=== PATIENT | female | born 1955 | race Caucasian/White ===

== ENCOUNTER 2018-04-03 21:05 | Emergency (ER) | payer BC, OTHER ==
[~2018-04-03] VITALS: Ht 170.2 cm; Wt 86.2 kg
[2018-04-03] MEDS ORDERED: PANTOPRAZOLE 40 MG 10ML VIAL IV STA (21:11)
[2018-04-03] MEDS ORDERED: DICYCLOMINE HCL 20 MG/2 ML VIAL IM ONE (21:15)
[2018-04-03 22:27] LABS: BASOPHILS % 0.5 % (0.0-1.0); EOSINOPHILS # (AUTO) 0.1 (0.0-0.4); EOSINOPHILS % 2.1 % (0.0-6.0); HEMATOCRIT 42.1 % (34.2-44.1); HEMOGLOBIN 13.5 g/dL (12.0-16.0); LYMPHOCYTES # (AUTO) 3.5 (1.0-3.2); LYMPHOCYTES % 53.4 % (18.0-39.1); MEAN CORPUSCULAR HEMOGLOBIN 28.6 pg (28-32); MEAN CORPUSCULAR HGB CONC 32.1 g/dL (31-35); MEAN CORPUSCULAR VOLUME 89.2 fL (81-99); MONOCYTES # (AUTO) 0.7 (0.2-0.8); MONOCYTES % 11.3 % (4.4-11.3); NEUTROPHILS # (AUTO) 2.1 (2.1-6.9); NEUTROPHILS % 32.5 % (38.7-80.0); PLATELET COUNT 246 x10e3/uL (140-360); RED BLOOD COUNT 4.72 x10e6/uL (3.6-5.1); RED CELL DISTRIBUTION WIDTH 13.2 % (11.7-14.4)
--- NOTE | 2018-04-03 22:38 | Diagnostic Imaging Report ---
EXAM: US GALLBLADDER INDICATION: Right upper quadrant pain COMPARISON: None TECHNIQUE: Transverse and longitudinal sonographic images of the right upper abdomen were obtained. FINDINGS: LIVER: 13.5 cm in the right midclavicular line. Normal echogenicity, normal contour, no masses. Main Portal Vein: Normal size with hepatopetal flow. GALLBLADDER: No stones, sludge, wall-thickening or pericholecystic fluid. Negative sonographic Barfield's sign. BILE DUCTS: No intra nor extra-hepatic dilation. Common bile duct measures 0.4 cm. PANCREAS: Visualized portions are normal. RIGHT KIDNEY: 9.3 cm in length Echogenicity: Normal Collecting System: No hydronephrosis Stones: None Cyst/Mass: None FREE FLUID: None in the right upper quadrant of the abdomen IMPRESSION: No cholelithiasis or evidence of acute cholecystitis. Signed by: Dr. Raysa Jeter M.D. on 04/03/2018 10:35 PM
[2018-04-03 22:51] LABS: CLARITY,URINE CLEAR (CLEAR); COLOR,URINE YELLOW (YELLOW)
[2018-04-03 22:52] LABS: LEUKOCYTE ESTERASE ,URINE 2+ (NEGATIVE); NITRITE,URINE NEGATIVE (NEGATIVE); PROTEIN,URINE DIPSTICK NEGATIVE (NEGATIVE)
[2018-04-03 22:53] LABS: ALANINE AMINOTRANSFERASE 17 IU/L (0-55); ALBUMIN 4.5 g/dL (3.5-5.0); ALBUMIN/GLOBULIN RATIO 1.3 (0.8-2.0); ALKALINE PHOSPHATASE 109 IU/L (40-150); AMYLASE 52 U/L (25-125); ANION GAP 15.7 mmol/L (8-16); BILIRUBIN,URINE NEGATIVE (NEGATIVE); BLOOD UREA NITROGEN 15 mg/dL (7-26); BUN/CREATININE RATIO 19 (6-25); CALCIUM 9.8 mg/dL (8.4-10.2); CARBON DIOXIDE 24 mmol/L (22-29); CHLORIDE 104 mmol/L (98-107); CREATINE KINASE 103 IU/L (29-168); CREATININE, SERUM 0.81 mg/dL (0.57-1.11); EST GLOMERULAR FILTRATION RATE > 60 ML/MIN (60-); GLUCOSE 81 mg/dL (74-118); KETONES,URINE NEGATIVE (NEGATIVE); LIPASE 21 U/L (8-78); POTASSIUM 3.7 mmol/L (3.5-5.1); SODIUM 140 mmol/L (136-145); URINE UROBILINOGEN 0.2 mg/dL (0.2 - 1)
[2018-04-03 22:54] LABS: BACTERIA,URINE FEW /HPF; EPITHELIAL CELLS,URINE FEW /LPF; RBC,URINE 0-5 /HPF (0-5)
[2018-04-03 23:47] VITALS: BP 123/57
== END 2018-04-04 | disposition home or self-care (01) ==
LOC: ER 21:05
DX: R10.11 Right upper quadrant pain (principal); E03.9 Hypothyroidism, unspecified; G89.29 Other chronic pain; Z85.828 Personal history of other malignant neoplasm of skin
CPT/HCPCS: 36415; 76705; 80053; 81001; 82150; 82550; 82553; 83690; 84484; 85025; 93005; 99284; J0500

== ENCOUNTER → 2022-05-25 | Outpatient (CLI) | payer OTHER | LOC: NM 11:15 | PROVIDERS: ATTEND Internal Medicine | DX: R10.11 Right upper quadrant pain (principal) | CPT/HCPCS: 78227; A9537 ==